=== PATIENT | male | born 1970 | race Caucasian/White ===

== ENCOUNTER 2020-08-08 04:10 | Emergency (ER) | payer SELFPAY ==
[~2020-08-08] VITALS: Ht 177.8 cm; Wt 77.0 kg
[~2020-08-08 04:10] MED LIST: HCA25SU PR; SULF1TAB38 PO
[2020-08-08] MEDS ORDERED: cefTRIAXone 1,000 MG/2.86 ml vial (IM ONLY) IM STA (04:21)
--- NOTE | 2020-08-08 04:28 | ED Upper Extremity ---
General Chief Complaint: Upper Extremity Stated Complaint: R ARM PAIN/SWELLING/INJURY;FEVER Source: patient Exam Limitations: no limitations History of Present Illness Date Seen by Provider: Aug 08, 2020 Time Seen by Provider: 04:11 Initial Comments Patient presents the ER by private conveyance from home with chief complaint of increasing pain swelling redness along his right elbow. About 2 weeks ago he had a fall on some scaffolding got several abrasions and cuts on his right forearm from it and now has swelling of the elbow. He thinks maybe he chipped his elbow but never got it checked out. No fevers, nausea vomiting shortness of breath cough. Allergies and Home Medications Allergies Coded Allergies: No Known Allergies (Verified Allergy, Unknown, 08/12/05) Home Medications Hydrocortisone Acetate 1 Ea Supp, 1 EA CA Q8HR FOR RECTAL PAIN Prescribed by: HECTOR MCKEON on 12/25/11 1007 Trimethoprim/Sulfamethoxazole 1 Ea Tablet, 1 EA PO BID FOR INFECTION Prescribed by: HECTOR MCKEON on 12/25/11 1007 Patient Home Medication List Home Medication List Reviewed: Yes Review of Systems Constitutional: No chills, No fever EENTM: No ear discharge, No ear pain Respiratory: No cough, No phlegm Cardiovascular: No chest pain, No palpitations Gastrointestinal: No abdominal pain, No nausea, No vomiting Genitourinary: No discharge, No dysuria Musculoskeletal: see HPI; No back pain; joint pain Past Onwznze-Rqxzyq-Hdkboo Hx Patient Social History Alcohol Use: Denies Use Drug of Choice: Denies Smoking Status: Current Everyday Smoker Physical Exam Vital Signs Vital Signs - First Documented 08/08/20 04:15 Temp 36.4 Pulse 92 Resp 18 B/P (MAP) 138/100 (113) Pulse Ox 98 O2 Delivery Room Air Capillary Refill : Height, Weight, BMI Height: '" Weight: lbs. oz. kg; BMI Method:Stated General Appearance: WD/WN, no apparent distress HEENT: PERRL/EOMI, pharynx normal Neck: full range of motion, normal inspection Cardiovascular: normal peripheral pulses, regular rate, rhythm Respiratory: no respiratory distress, no accessory muscle use Shoulder: normal inspection, non-tender, no evidence of injury, normal ROM Elbow/Forearm: Right (Erythema running up the triceps long-term across the humerus), limited ROM (Lacks about 5 to 10 degrees of extension), pain (Right), swelling (Right) Wrist: Yes normal inspection, Yes non-tender, Yes no evidence of injury Neurologic/Tendon: normal sensation, normal motor functions, normal tendon functions, responds to pain Neurologic/Psychiatric: alert, normal mood/affect, oriented x 3 Skin: other (Erythematous cellulitic appearance without induration around the right arm) Procedures/Interventions Progress Olecranon bursa aspiration. Clean the site with chlorhexidine and allowed to dry and then used alcohol. We then infiltrated 1 cc of 1% lidocaine in the superficial and subcutaneous tissues. When the patient was adequately anesthetized we used an 18-gauge needle 1-1/2 inches long to insert into the bursa. We withdrew about 8 cc of clear serosanguineous fluid and put about 1 cc of lidocaine 1% back. Patient tolerated procedure well. A sterile bandage was placed. Progress/Results/Core Measures Results/Orders My Orders Orders - ANDRÉS CERVANTES Elbow, Right, 3 Views (08/08/20 04:21) Ceftriaxone For Im Use (Rocephin For Im (08/08/20 04:21) Lidocaine 1% Inj 20 Ml (Xylocaine 1% Inj (08/08/20 04:30) Vital Signs/I&O 08/08/20 04:15 Temp 36.4 Pulse 92 Resp 18 B/P (MAP) 138/100 (113) Pulse Ox 98 O2 Delivery Room Air Progress Progress Note : Time: 04:26 Progress Note Plan to get plain films of the right elbow. We will then infiltrate the area with some lidocaine and attempt to extract some of the fluid from the bursa. We will send for culture if it appears turbid. Rocephin IM and Keflex 4 times daily for a week. Outpatient follow-up. Diagnostic Imaging Diagonstic Imaging: Xray Plain Films/CT/US/NM/MRI: elbow (Right) Comments No acute osseous fracture seen. Soft tissue swelling seen. Reviewed: Reviewed by Me Departure Impression Primary Impression: Cellulitis of right upper extremity Additional Impressions: Olecranon bursitis, right elbow Multiple abrasions Disposition: ADMITTED INPATIENT Condition: Stable Departure-Patient Inst. Decision time for Depature: 04:47 Referrals: NO,LOCAL PHYSICIAN (PCP) Primary Care Physician THAI GLOVER MD Patient Instructions: Olecranon Bursitis (DC), Cellulitis and Erysipelas (Skin Infections) Add. Discharge Instructions: You have an infection in the soft tissues of your arm related to your wounds. Keflex 1 capsule 4 times a day for the next week. Plan to follow-up with a physician in 1 week for reexamination. Expect to see some improvement in the redness swelling and pain in about 3 to 4 days on antibiotics. Wrap the bursa around her elbow with a elastic bandage such as an Emigdio wrap for compression. Elevated above the level of your heart to decrease the swelling. Heat can be helpful for the pain. Clean the wound with regular soap and water only. Tylenol 1000 mg every 8 hours as necessary for pain. Ibuprofen 800 mg every 8 hours as necessary for pain. Return to the ER or your primary care doctor sooner if you are not experiencing adequate relief of symptoms over the next 3 to 4 days or it is worsening and involving your entire shoulder. Change the dressing on your elbow at least once a day or more frequently if it becomes soiled. A sterile Band-Aid or gauze with tape will be fine. All discharge instructions reviewed with patient and/or family. Voiced understanding. Scripts Cephalexin (Cephalexin) 500 Mg Tablet 500 MG PO QID for 7 Days, #28 TAB 0 Refills Prov: ANDRÉS CERVANTES 08/08/20 Work/School Note: Work Release Form Date Seen in the Emergency Department: Aug 08, 2020 Return to Work: Aug 08, 2020 Restrictions: Need Release from Doctor Other Restrictions Listed Below: Avoid repetitive use of the right arm until 08/15/2020. Copy Copies To 1: THAI GLOVER MD, TITUS J Aug 08, 2020 04:28
[2020-08-08] MEDS ORDERED: LIDOCAINE 1% INJ 20 ML 20 ML VIAL INJ ONE (04:30)
[2020-08-08] MEDS ORDERED: CEPH500T PO (04:50)
[2020-08-08 04:56] VITALS: BP 124/108
--- NOTE | 2020-08-08 05:22 | Diagnostic Imaging Report ---
EXAMINATION: Right elbow, 3 views INDICATION: Traumatic right elbow pain. COMPARISON: None available. FINDINGS: No fracture or acute osseous abnormality. Bony alignment is maintained. No arthritic changes noted. There is no elbow joint effusion. There is mild edema in the superficial elbow soft tissues. IMPRESSION: No acute fracture or dislocation. Dictated by: Dictated on workstation # [id number]
== END 2020-08-08 04:56 | disposition other institution (70) ==
LOC: EDUNIT# 04:10 → ER 04:12
DX: L03.113 Cellulitis of right upper limb (principal); M70.21 Olecranon bursitis, right elbow; I10 Essential (primary) hypertension; F17.200 Nicotine dependence, unspecified, uncomplicated; W12.XXXA Fall on and from scaffolding, initial encounter
CPT/HCPCS: 73080; 96372